=== PATIENT | male | born 1985 | race African-American/Black ===

== ENCOUNTER 2021-08-05 14:20 | Emergency (ER) | payer OTHER ==
[~2021-08-05] VITALS: Ht 172.7 cm; Wt 81.6 kg
[2021-08-05 15:06] VITALS: BP 148/99
[2021-08-05] MEDS ORDERED: CEPH500C2 PO (15:11)
[2021-08-05] MEDS ORDERED: SULF1TAB48 PO (15:11)
== END 2021-08-05 15:17 ==
LOC: ER 14:26
DX: L02.413 Cutaneous abscess of right upper limb (principal); Z60.2 Problems related to living alone